=== PATIENT | female | born 1940 | race Hispanic/Latino ===

== ENCOUNTER 2019-05-09 08:21 | Observation (INO) | payer OTHER ==
[2019-05-07 12:09] LABS: BASOPHILS % (AUTO) 0.5 % (0.0-5.0); EOSINOPHILS % (AUTO) 2.6 % (0.0-8.0); HEMATOCRIT 39.4 % (36-48); LYMPHOCYTES % (AUTO) 37.7 % (21.0-51.0); MEAN CORPUSCULAR HEMOGLOBIN 31.6 pg (27.0-33.0); MEAN CORPUSCULAR HGB CONC 32.2 g/dL (32.0-36.0); MONOCYTES % (AUTO) 5.6 % (3.0-13.0); NEUTROPHILS % (AUTO) 53.2 % (40.0-77.0); PLATELET COUNT (AUTO) 181 K/uL (130-400); RED BLOOD CELL COUNT(AUTO) 4.02 MIL/uL (4.00-5.50); RED CELL DISTRIBUTION WIDTH 13.4 % (11.0-15.5); WHITE BLOOD COUNT (AUTO) 8.2 K/uL (4.8-10.8)
[2019-05-07 12:21] LABS: INR 0.94 (0.85-1.15); PARTIAL THROMBOPLASTIN TIME 27.3 SEC (26.3-35.5); PROTHROMBIN TIME 10.2 SEC (9.6-11.6)
[2019-05-07 12:24] LABS: CREATININE 1.1 mg/dL (0.5-1.5); POTASSIUM 4.9 mmol/L (3.5-5.1)
[2019-05-07 12:30] VITALS: BP 130/67
--- NOTE | 2019-05-07 13:34 | NUR ---
med as per Dr. Sterling ok that patient stop xarelto on 05-05-19
[2019-05-09] VITALS (9 sets, daily range): BP systolic 122–142; BP diastolic 65–94
[~2019-05-09] VITALS: Ht 154.9 cm; Wt 94.0 kg
[~2019-05-09 08:21] MED LIST: CEFAZOLIN SODIUM 1 GM VIAL IVP SCH; CHOL500051 PO; LEVO50TA11 PO; LOSA25TA41 PO; METO-409 PO; OMEG100T PO; RIVA20TA PO; SODIUM CHLORIDE 0.9% 1000ML 1,000 ML IV SCH
[2019-05-09] MEDS ORDERED: BUPIVACAINE/PF 0.25% 30ML VIAL IJ ONE (13:13)
[2019-05-09] MEDS ORDERED: CEFAZOLIN SODIUM 1 GM VIAL ONE (13:14)
[2019-05-09] MEDS ORDERED: LIDOCAINE HCL 1% MDV 50ML VIAL ONE (13:14)
[2019-05-09] MEDS ORDERED: MEPERIDINE-PF 25 MG/ML SYG ONE ×3 (14:04→15:04)
[2019-05-09] MEDS ORDERED: MIDAZOLAM HCL 1 MG/ML 2ML VIAL ONE ×3 (14:04→15:04)
[2019-05-09] MEDS ORDERED: IODIXANOL 320 MG/ML 100 ML VIAL ONE (14:05)
[2019-05-09] MEDS ORDERED: ACETAMINOPHEN-CODEINE 300/30MG TAB PO PRN (16:15)
--- NOTE | 2019-05-09 17:10 | NUR ---
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 CURRENTLY DENIES PAIN OR SHORTNESS OF BREATH. TELE MONITOR READING ATRIAL FIB HR 80. DRESSING TO LEFT CHEST AREA DRY AND INTACT, ARM SLING ON LEFT ARM. PLAN OF CARE REVIEWED WITH PATIENT, VERBALIZED UNDERSTANDING. INSTRUCTED PT ON BEDREST UNTIL 815 PM TONIGHT AND TO CALL FOR ASSISTANCE PRIOR TO GETTING OUT OF BED. FAMILY MEMBERS AT BEDSIDE.
[2019-05-09] MEDS: METOPROLOL TARTRATE 50 MG TAB PO SCH (19:54)
[2019-05-09] MEDS ORDERED: METOPROLOL SUCCINATE 50 MG TAB.SR.24H PO SCH (21:00)
[2019-05-09] MEDS ORDERED: LOSARTAN 50 MG TABLET PO SCH (21:00)
[2019-05-10] MEDS ORDERED: DiphenhydrAMINE HCL 50 MG/ML VIAL IV PRN (03:00)
[2019-05-10] MEDS ORDERED: ACETAMINOPHEN 325 MG TAB PO PRN ×2 (03:00)
[2019-05-10] MEDS ORDERED: NITROGLYCERIN 0.4 MG SL TAB SL PRN (03:00)
[2019-05-10] MEDS ORDERED: ONDANSETRON HCL 4 MG/2 ML VIAL IV PRN (03:00)
[2019-05-10 03:50] VITALS: BP 145/87
[2019-05-10 06:26] LABS: BASOPHILS % (AUTO) 0.2 % (0.0-5.0); EOSINOPHILS % (AUTO) 0.9 % (0.0-8.0); HEMATOCRIT 37.7 % (36-48); LYMPHOCYTES % (AUTO) 25.4 % (21.0-51.0); MEAN CORPUSCULAR HEMOGLOBIN 31.6 pg (27.0-33.0); MEAN CORPUSCULAR HGB CONC 32.9 g/dL (32.0-36.0); MEAN CORPUSCULAR VOLUME 95.9 fL (79-99); MONOCYTES % (AUTO) 6.3 % (3.0-13.0); PLATELET COUNT (AUTO) 161 K/uL (130-400); RED BLOOD CELL COUNT(AUTO) 3.93 MIL/uL (4.00-5.50); RED CELL DISTRIBUTION WIDTH 13.3 % (11.0-15.5); WHITE BLOOD COUNT (AUTO) 8.6 K/uL (4.8-10.8)
[2019-05-10] MEDS ORDERED: LEVOTHYROXINE 50 MCG TABLET PO SCH (06:30)
[2019-05-10 06:37] LABS: ALBUMIN 3.1 g/dL (3.5-5.0); BILIRUBIN,TOTAL 0.6 mg/dL (0.2-1.0); CREATININE 1.1 mg/dL (0.5-1.5); POTASSIUM 4.3 mmol/L (3.5-5.1); TOTAL PROTEIN, SERUM 6.9 g/dL (6.0-8.3)
[2019-05-10 07:58] VITALS: BP 131/74
[2019-05-10] MEDS ORDERED: FAMOTIDINE/PF 20 MG/2 ML VIAL IV SCH (09:00)
[2019-05-10] MEDS ORDERED: CHOLECALCIFEROL 125 MCG PO SCH (09:00)
[2019-05-10] MEDS ORDERED: FISH OIL 1000 MG/CAP PO SCH (09:00)
[2019-05-10] MEDS: METOPROLOL TARTRATE 50 MG TAB PO SCH (09:25)
[2019-05-10 11:52] VITALS: BP 121/72
--- NOTE | 2019-05-10 14:46 | NUR ---
[id number] patient signed HAZEL Letter, I faxed HAZEL Letter to [phone] and placed in chart under consent tab
--- NOTE | 2019-05-10 15:11 | NUR ---
PT GIVEN D/C INSTRUCTIONS, WAITING FOR RIDE HOME GIVEN USING TEACH BACK TECHNIQUE RE; NEW MEDS, S/S TO WATCH FOR AND WHEN TO CALL MD OR 911. 05/22 @ 10:45 [facility] [phone] FOR STATUS POST AICD UPGRADE. DO NOT REMOVE DRESSING DR. HERNANDEZ WILL REMOVE AT THE TIME OF YOUR APPOINTMENT. DO NOT ELEVATE LEFT ARM ABOVE SHOULDER LEVEL FOR 6 WEEKS. FOLLOW UP WITH YOUR PRIMARY DOCTOR IN 2-4 DAYS. FOR TRANSITION OF CARE. IF SURGICAL SITE HOT, RED, PAIN TO TOUCH OR SWELLING CALL YOUR SURGEON DR. HERNANDEZ. IF SHORTNESS OF BREATH OR CHEST PAIN OCCURS THAT DOES NOT RESOLVE WITH REST CALL 911. KEEP DRESSING DRY AT ALL TIMES. DO NOT DRIVE HEAVY MACHINERY OR LIFT ANY HEAVY OBJECTS UNTIL CLEARED BY DR. HERNANDEZ. IV OUT INTACT, NO BLEEDING, DRESSING INTACT, NOT TO TOUCH PACEMAKER DRESSING UNTIL FOLLOW UP WITH DR. HERNANDEZ. AAOX3, DENIES ANY NEEDS AT THIS TIME. TELE REMOVED BY ARIAN NELSON. Addendum: 05/10/19 at 1521 by RACHEL OLEA RN RN PT WAS ALSO INSTRUCTED TO CONTINUE XARELTO 20MG AT HS TOMORROW.
--- NOTE | 2019-05-10 15:51 | NUR ---
PATIENT D/C FAMILY WITH PT VIA WHEELCHAIR. NO DISTRESS, NO IV, NO TELE.
== END 2019-05-10 15:45 | disposition home or self-care (01) ==
LOC: DAH 08:21 → DAHIP 08:22 → DAH 08:22 → 2AH 18:05
PROVIDERS: ADMIT Internal Medicine; ATTEND Internal Medicine
DX: I48.91 Unspecified atrial fibrillation (principal); I11.0 Hypertensive heart disease with heart failure; I50.22 Chronic systolic (congestive) heart failure; I49.5 Sick sinus syndrome; E03.9 Hypothyroidism, unspecified; E78.5 Hyperlipidemia, unspecified; E66.01 Morbid (severe) obesity due to excess calories; Z68.39 Body mass index [BMI] 39.0-39.9, adult; Z90.49 Acquired absence of other specified parts of digestive tract; Z79.01 Long term (current) use of anticoagulants; Z95.810 Presence of automatic (implantable) cardiac defibrillator
CPT/HCPCS: 33225; 33233; 33249; 36415 ×3; 71045; 80048; 80053; 83735; 84443; 85025 ×2; 85610; 85730; 93005; 96374; A4215; A4216; A4222; A4223 ×3; A4606; A4663; C1769 ×3; C1882; C1895; C1900; G0378 ×17; J0690; J2175 ×3; J2250 ×3; J3490 ×3; Q9967; 99156; 99157

== ENCOUNTER 2020-02-07 06:55 | Day surgery (SDC) | payer OTHER ==
[2020-02-05 10:34] LABS: BASOPHILS % (AUTO) 0.5 % (0.0-5.0); EOSINOPHILS % (AUTO) 1.7 % (0.0-8.0); LYMPHOCYTES % (AUTO) 30.8 % (21.0-51.0); MEAN CORPUSCULAR HEMOGLOBIN 31.6 pg (27.0-33.0); MEAN CORPUSCULAR HGB CONC 32.9 g/dL (32.0-36.0); MEAN CORPUSCULAR VOLUME 96.1 fL (79-99); MONOCYTES % (AUTO) 5.9 % (3.0-13.0); NEUTROPHILS % (AUTO) 60.9 % (40.0-77.0); PLATELET COUNT (AUTO) 197 K/uL (130-400); RED BLOOD CELL COUNT(AUTO) 4.37 MIL/uL (4.00-5.50); RED CELL DISTRIBUTION WIDTH 13.3 % (11.0-15.5); WHITE BLOOD COUNT (AUTO) 8.7 K/uL (4.8-10.8)
[2020-02-05 10:46] LABS: POTASSIUM 4.4 mmol/L (3.5-5.1)
[2020-02-05 11:00] LABS: INR 1.1 (0.85-1.15); PARTIAL THROMBOPLASTIN TIME 32.4 SEC (26.3-35.5); PROTHROMBIN TIME 11.8 SEC (9.6-11.6)
[2020-02-06 11:00] VITALS: BP 166/78
[2020-02-07] VITALS (9 sets, daily range): BP systolic 122–156; BP diastolic 57–90
[~2020-02-07] VITALS: Ht 152.4 cm; Wt 89.7 kg
[~2020-02-07 06:55] MED LIST changes: +ASCO500T20 PO; -CEFAZOLIN SODIUM 1 GM VIAL IVP SCH; +DIGO125T71 PO; -OMEG100T PO; +OMEGA 3 PO; -SODIUM CHLORIDE 0.9% 1000ML 1,000 ML IV SCH; +ZINC50TA64 PO
[2020-02-07] MEDS ORDERED: SODIUM CHLORIDE 0.9% 1000ML 1,000 ML IV SCH (08:00)
[2020-02-07] MEDS ORDERED: MIDAZOLAM HCL 1 MG/ML 2ML VIAL ONE (08:46)
[2020-02-07] MEDS ORDERED: MEPERIDINE-PF 25 MG/ML SYG ONE (08:46)
[2020-02-07] MEDS ORDERED: HEPARIN SODIUM 1000UNIT/ML 10ML VIAL ONE (08:46)
[2020-02-07] MEDS ORDERED: LIDOCAINE HCL 2% 20ML ONE (08:47)
--- NOTE | 2020-02-07 13:30 | NUR ---
PT ENDORSED TO [facility] CARLOS
== END 2020-02-07 14:30 | disposition home or self-care (01) ==
LOC: DAH 06:55
PROVIDERS: ATTEND Internal Medicine Cardiovascular Disease
DX: I48.21 Permanent atrial fibrillation (principal); I11.0 Hypertensive heart disease with heart failure; I50.40 Unspecified combined systolic (congestive) and diastolic (congestive) heart failure; E03.9 Hypothyroidism, unspecified; E66.9 Obesity, unspecified; I42.0 Dilated cardiomyopathy; Z79.899 Other long term (current) drug therapy; Z79.01 Long term (current) use of anticoagulants; Z98.890 Other specified postprocedural states; Z95.810 Presence of automatic (implantable) cardiac defibrillator; Z68.37 Body mass index [BMI] 37.0-37.9, adult; Z90.49 Acquired absence of other specified parts of digestive tract; Z79.890 Hormone replacement therapy
CPT/HCPCS: 36415; 80048; 85025; 85610; 85730; 93005; 93650; A4215; A4216; A4221; A4222; A4223 ×3; A4606; A4649 ×2; A4663; C1732; C1894 ×2; J1644; J2175; J2250; J3490; J7030; 93286; 99156; 99157

== ENCOUNTER → 2020-08-06 | Outpatient (CLI) | payer OTHER | END | disposition home or self-care (01) | LOC: SHCH 13:53 | PROVIDERS: ATTEND Internal Medicine Cardiovascular Disease | DX: R01.1 Cardiac murmur, unspecified (principal) | CPT/HCPCS: 93306; 93356 ==

== ENCOUNTER → 2021-12-02 | Outpatient (CLI) | payer OTHER | END | disposition home or self-care (01) | LOC: RAH 13:40 | PROVIDERS: ATTEND Internal Medicine Cardiovascular Disease | DX: Z13.6 Encounter for screening for cardiovascular disorders (principal) | CPT/HCPCS: 75571 ==

== ENCOUNTER → 2024-04-11 | Outpatient (CLI) | payer OTHER ==
[2024-04-11 21:45] VITALS: PULSE 63; RESP 12
[2024-04-11 22:30] VITALS: PULSE 63; RESP 12
[2024-04-11 23:01] VITALS: PULSE 47; RESP 12
[2024-04-11 23:31] VITALS: PULSE 63; RESP 10
[2024-04-12] VITALS (14 sets, daily range): PULSE 36–75; RESP 10–20
== END | disposition home or self-care (01) ==
LOC: SLP 20:07
PROVIDERS: ATTEND Internal Medicine Cardiovascular Disease
DX: G47.33 Obstructive sleep apnea (adult) (pediatric) (principal); M54.9 Dorsalgia, unspecified
CPT/HCPCS: 95811

== ENCOUNTER 2024-11-29 05:32 | Day surgery (SDC) | payer OTHER ==
[2024-11-26 11:28] LABS: IMMATURE GRANULOCYTE ABSOLUTE 0.02 K/uL (0-1); NUCLEATED RED BLOOD CELLS 0.0 % (0.0-0.19); PLATELET COUNT (AUTO) 202 K/uL (130-400); RED BLOOD CELL COUNT(AUTO) 3.87 MIL/uL (4.00-5.50); RED CELL DISTRIBUTION WIDTH 15.3 % (11.0-15.5); WHITE BLOOD COUNT (AUTO) 6.8 K/uL (4.8-10.8)
[2024-11-26 11:30] VITALS: BP 169/79; PULSE 79; RESP 16; TEMP 97.4
[2024-11-26 11:37] LABS: CREATININE 1.1 mg/dL (0.5-1.0); GLOMERULAR FILTR. RATE CALC 50.0 mL/min (>90); GLUCOSE,RANDOM 97.0 mg/dL (70-105); SODIUM SERUM 142.0 mmol/L (136-145); UREA NITROGEN, BLOOD 12.0 mg/dL (7-18)
--- NOTE | 2024-11-26 12:18 | EKG ---
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
[2024-11-26 12:47] LABS: INR 1.12 (0.85-1.15)
[~2024-11-29] VITALS: Ht 154.9 cm; Wt 88.1 kg
[2024-11-29] VITALS (10 sets, daily range): BP systolic 130–148; BP diastolic 62–82; PULSE 75–81; RESP 12–18; TEMP 97.3–98
[2024-11-29] MEDS: 0.9%NACL 1000ML 1,000 ML IV SCH (06:19)
[2024-11-29] MEDS ORDERED: co Q 10 PO (07:01)
[2024-11-29] MEDS ORDERED: OMEP20CA12 PO (07:01)
[2024-11-29] MEDS ORDERED: LEVO50CA5 PO (07:01)
[2024-11-29] MEDS ORDERED: RIVA20TA PO (07:01)
[2024-11-29] MEDS ORDERED: METO-409 PO (07:01)
[2024-11-29] MEDS ORDERED: SODIUM BICARB 50MEQ 50ML VIAL 50 ML ONE (08:14)
[2024-11-29] MEDS ORDERED: LIDOCAINE HCL 1% MDV 50ML VIAL ONE (08:14)
[2024-11-29] MEDS ORDERED: MIDAZOLAM HCL 1 MG/ML 2ML VIAL ONE ×3 (08:22→09:03)
[2024-11-29] MEDS ORDERED: SACU1TAB PO (10:45)
[2024-11-29] MEDS ORDERED: DOXY100C5 PO (10:46)
--- NOTE | 2024-11-29 14:16 | NUR ---
Full and complete discharge instructions given to Patient and Family both verbally and in writing. Explained Surgical AICD procedure precautions and follow up. AICD incision site clean dry and intact. No evidence of bleeding, bruising or hematoma. All questions answered. PIV removed with catheter tip intact. Family at bedside appearing supportive. W/C to POV with Family to home
== END 2024-11-29 14:24 | disposition home or self-care (01) ==
LOC: DAH 05:32
PROVIDERS: ATTEND Internal Medicine Cardiovascular Disease
DX: Z45.02 Encounter for adjustment and management of automatic implantable cardiac defibrillator (principal); I48.20 Chronic atrial fibrillation, unspecified; I42.8 Other cardiomyopathies; I11.0 Hypertensive heart disease with heart failure; I50.9 Heart failure, unspecified; E03.9 Hypothyroidism, unspecified; G47.33 Obstructive sleep apnea (adult) (pediatric); I44.2 Atrioventricular block, complete; E66.9 Obesity, unspecified; Z90.49 Acquired absence of other specified parts of digestive tract; Z68.34 Body mass index [BMI] 34.0-34.9, adult; D68.69 Other thrombophilia; Z79.01 Long term (current) use of anticoagulants; Z79.899 Other long term (current) drug therapy
CPT/HCPCS: 80048; 85025; 85610; 85730; 36415; 93005; 33264; 99156; 99157 ×4; C1882; J3010; J0690 ×2; J0665; J3490 ×2; J2250 ×3; A4215; A4222; A4221; A4663; A4216; A4606; A4223 ×3